=== PATIENT | female | born 1975 | race Two or more races ===

== ENCOUNTER 2024-07-11 14:18 | Emergency (ER) | payer MEDICAID, SELFPAY ==
[2024-07-11 14:52] VITALS: BP 153/92; PULSE 112; RESP 16; TEMP 37; O2SAT 97; BMI 22.3
--- NOTE | 2024-07-11 14:56 | XR_ITS ---
Examination: Duplex scan of the lower extremity, unilateral left complete Date and time of exam: July 11, 2024 1514 hours INDICATIONS: Left lower leg pain and swelling beginning one week ago Technique: Duplex scan of the extremity veins using B-mode/grayscale imaging and Doppler spectral analysis and color flow Attention is directed to internal echogenicity, compression and augmentation involving these veins, color flow assessment, spectral analysis Findings: Major deep venous structures in the extremity demonstrate normal course and caliber. There is no evidence of deep vein thrombosis. Normal color flow and spectral analysis Impression: Negative for DVT..
--- NOTE | 2024-07-11 15:05 | EDNOTE_ITS ---
<Statement entered by Regina Jain MD - 07/12/24 11:53> As co-signing physician, I was present and available for consult prn. I concur with the plan and care as documented by the midlevel provider. Lower Extremity Injury RME/HPI General Chief Complaint: Ankle/Foot Injury Stated Complaint: LEFT ANKLE PAIN/SWELLING X 1 WK Time Seen by Provider: 07/11/24 14:51 Arrival date/time: 07/11/24 14:18 RME / HPI RME / HPI Narrative: 49-year-old female presents with left ankle swelling for 1 week. Denies any fall or trauma. Patient states she went to her doctor yesterday and her doctor told her that it might be edema possibly from CHF. She feels that this is unlikely as it only in a single extremity. Patient states she is concerned for DVT. No fevers. No recent travel. No chest pain or shortness of breath. Related Data Home Medications ?Medication ?Instructions ?Recorded ?Confirmed Atenolol * (TENORMIN *) 50 mg PO QAM #0 tabs 4 04/03/18 LEVOTHYROXINE 88 mcg PO QAMAC ##0 08/06/13 04/03/18 hydrochlorothiazide 25 mg tablet 25 mg PO QAM #0 tabs 05/08/15 04/03/18 Previous Rx's ?Medication ?Instructions ?Recorded valacyclovir 1 gram tablet 1,000 mg PO TID #30 tabs hydrocodone 5 mg-acetaminophen 325 1 - 2 tab PO Q6H MS N pain #14 tabs 07/07/21 mg tablet dextromethorphan HBr 15 mg/5 mL 15 mg (5 mL) PO Q8H #1 18 mL 03/19/22 oral liquid (Tussin Cough (DM only)) meloxicam 7.5 mg tablet 7.5 mg PO QDAY #10 tabs 03/01 Allergies Allergy/AdvReac Type Severity Reaction Status Date / Time No Known Allergies Allergy Verified 07/11/24 14:19 Review of Systems Review of Systems Narrative Review of Systems: Review of systems negative except as outlined in the HPI. Past Medical History Past Medical History CARDIAC: Positive Cardiac Disorders and Hypertension; Negative Congestive Heart Failure RESPIRATORY: Negative Chronic Obstructive Pulmonary Disease (COPD) GENITOURINARY: Negative Renal Disease ENDOCRINE: Negative Diabetes Mellitus Type 1 or Diabetes Mellitus Type 2 Social History SMOKING STATUS: Never smoker SUBSTANCE USE: does not use ED Exam Narrative Physical exam: Constitutional: no acute distress, age appropriate, non-toxic Eyes: PERRL, conjunctivae w/o pallor, EOMI HENT: normocephalic, atraumatic. Oral mucosa moist Respiratory Effort: no stridor, effort normal, no retractions Musculoskeletal: Mild soft tissue swelling of the left ankle, no erythema. Range of motion of the ankle joint intact. DP pulse 2+. Some mild calf tenderness as well. Skin: warm, dry; No rash Neurology: alert, oriented X 4. Normal gait. Moves all extremities spontaneously. Psychology: cooperative, normal mood Course Quality Measures none Orders Category Date Time Status US venous doppler LE LT Stat Exams 07/11/24 14:56 Completed Vital Signs Vital signs: Vital Signs Temperature 98.6 F 07/11/24 14:52 Pulse Rate 112 H 07/11/24 14:52 Respiratory Rate 16 07/11/24 14:52 Blood Pressure 153/92 H 07/11/24 14:52 Pulse Oximetry (%) 97 07/11/24 14:52 Oxygen Delivery Method Room Air 07/11/24 14:52 Extremity Injury, Lower MDM Narrative MDM Narrative:: Patient presented with left leg pain and swelling. Differential diagnoses include fracture, arthritis, gout, DVT. Suspicion for fracture as there is no trauma and patient is able to ambulate without difficulty. History not consistent with gout. Ultrasound negative for DVT. Counseled to follow-up with primary care for further evaluation of ankle swelling. Return to ED precautions given Patient data External records reviewed:: [facility] previous records Clinical information provided by:: patient Social determinants that could affect healthcare access:: none Patient has the following chronic illnesses:: None How is presenting disease/condition affected by chronic disease/condition?: no chronic disease Evaluation data The following diagnostics were reviewed and interpreted by me:: radiology exam(s) Lab and/or radiology exams considered but not ordered:: Considered x-ray and laboratory testing but not indicated Interpretation Summary: Examination: Duplex scan of the lower extremity, unilateral left complete Date and time of exam: July 11, 2024 1514 hours INDICATIONS: Left lower leg pain and swelling beginning one week ago Technique: Duplex scan of the extremity veins using B-mode/grayscale imaging and Doppler spectral analysis and color flow Attention is directed to internal echogenicity, compression and augmentation involving these veins, color flow assessment, spectral analysis Findings: Major deep venous structures in the extremity demonstrate normal course and caliber. There is no evidence of deep vein thrombosis. Normal color flow and spectral analysis Impression: Negative for DVT.. Medications / Prescriptions Medications or Prescriptions considered but not ordered:: N/A Medication administrations:: N/A Consultations Consultation(s) initiated? (list below): No Diagnosis Extremity Injury, Lower Differential Diagnosis: ankle sprain and strain, ankle fracture and other (DVT) Most likely diagnosis given after review of the tests above:: Ankle swelling Admission Indicated Admission indicated?: not indicated Admission Request Was there a request for admission?: No Disposition Plan Disposition Plan: Discharge Discharge Attestation Discharge Attestation: The patient and all family members were given an opportunity to ask questions and understood the discharge instructions. Discharge instructions specifically effects, indications for sooner follow up or return to the emergency department, and the expected course of current diagnosis. Patient condition: Stable Discharge Plan Plan Patient Disposition: HOME (Self Care) Prescriptions/Referrals Prescriptions/Med Rec: No Action Atenolol * (TENORMIN *) tablet 50 mg PO QAM Qty: 0 LEVOTHYROXINE 88 mcg PO QAMAC Qty: 0 hydrochlorothiazide 25 MG tablet 25 mg PO QAM Qty: 0 valacyclovir 1 gram tablet 1,000 mg PO TID Qty: 30 1RF hydrocodone-acetaminophen 5-325 mg tablet 1 - 2 tab PO Q6H MDD 6 PRN (Reason: pain) Qty: 14 0RF meloxicam 7.5 mg tablet 7.5 mg PO QDAY Qty: 10 0RF Tussin Cough (DM only) 15 mg/5 mL liquid 15 mg PO Q8H Qty: 118 0RF Referrals: Ann Marie Garrett [facility] [Primary Care Provider] - In 1 week Problem List Clinical Impression: Ankle swelling Patient/Caregiver Discharge Instructions Education Materials: ED Leg Swelling in a Single Leg Additional Instructions: Your ultrasound showed no evidence of DVT (blood clot). Elevate the extremity to help with swelling. Follow-up with your PCP for further evaluation. Return to the ED for new or worsening symptoms. Print Language: Swedish Stand Alone Forms: [facility]sha Award Info., Patient Portal Info Letter
== END 2024-07-11 17:59 | disposition home or self-care (01) ==
PROVIDERS: Emergency Provider Emergency Medicine; PCP Nurse Practitioner Family
DX: M25.472 Effusion, left ankle (principal)
CPT/HCPCS: 93971; 99284

== ENCOUNTER → 2024-08-01 | Outpatient (CLI) | payer MEDICAID, SELFPAY ==
--- NOTE | 2024-08-01 15:15 | XR_ITS ---
Examination: Screening digital mammography, bilateral Computer aided detection 3-D breast Tomosynthesis, bilateral Date and time of exam: August 01, 2024 1607 hours Compared to mammograms dating to April 19, 2020 Indication: Screening Technique: Nonmagnified MLO, CC views of the breasts to been obtained, reconstructed from 3-D Tomosynthesis images. R2 computer aided detection program utilized for evaluation of suspicious masses and/or abnormal calcifications. 3-D Tomosynthesis images obtained. Findings: The breasts are heterogeneously dense, which may obscure small masses 16mm round mass indistinct margins nipple level right breast, 2.8 cm from the nipple Impression: BI-RADS Category 0: Incomplete: Need additional imaging evaluation 16 mm round mass indistinct margins nipple level right breast CC view, recommend follow-up spot tomographic CC view, spot tomographic MLO view upper right breast, bilateral breast sonography to complete the workup.
== END | disposition home or self-care (01) ==
PROVIDERS: PCP Nurse Practitioner Family; Referring Provider Nurse Practitioner Family; Visit Provider Nurse Practitioner Family
DX: Z12.31 Encounter for screening mammogram for malignant neoplasm of breast (principal); R92.8 Other abnormal and inconclusive findings on diagnostic imaging of breast; N63.10 Unspecified lump in the right breast, unspecified quadrant
CPT/HCPCS: 77063; 77067

== ENCOUNTER → 2024-08-10 | Outpatient (CLI) | payer MEDICAID, SELFPAY ==
--- NOTE | 2024-08-10 14:30 | ECHO_ITS ---
Transthoracic Echo Report Ht (in): 63 Wt (lb): 130 Exam Location: Echo Lab Status: Preadmit General Production Worker: DANNY Sinclair^^^^ Indications: Procedure Performed: BP: 133 / 82 HR: 107 Technical Quality: Fair MEASUREMENTS (Male / Female) Normal Values 2D ECHO LV Diastolic Diameter PLAX 3.7 cm 4.2 - 5.9 / 3.9 - 5.3 cm LV Systolic Diameter PLAX 2.1 cm IVS Diastolic Thickness 1.0 cm 0.6 - 1.0 / 0.6 - 0.9 cm LVPW Diastolic Thickness 0.8 cm 0.6 - 1.0 / 0.6 - 0.9 cm LV Relative Wall Thickness 0.5 LVOT Diameter 1.3 cm Aortic Root Diameter 2.5 cm LA Systolic Diameter LX 2.9 cm 3.0 - 4.0 / 2.7 - 3.8 cm LV Ejection Fraction MOD 4C 62.9 % LV Cardiac Index MOD 4C 2593.8 cm?/min?m? LV Ejection Fraction 4C AL 64.6 % LV Cardiac Index 4C AL 2801.9 cm?/min?m? LA Volume Index 11.0 cm?/m? 16 - 28 cm?/m? Ascending Aorta Diameter 2.2 cm DOPPLER AV Peak Velocity 180.3 cm/s AV Peak Gradient 13.0 mmHg AV Mean Gradient 8.0 mmHg AV Velocity Time Integral 37.6 cm AI Peak Velocity 232.0 cm/s AI Peak Gradient 21.5 mmHg AI Pressure Half Time 667.0 ms LVOT Peak Velocity 111.0 cm/s LVOT Peak Gradient 4.9 mmHg LVOT Velocity Time Integral 28.6 cm LVOT Cardiac Index 2499.1 cm?/min?m? AV Area Cont Eq vti 1.0 cm? AV Area Cont Eq pk 0.8 cm? MV Area PHT 4.7 cm? MR Peak Velocity 251.0 cm/s MR Peak Gradient 25.2 mmHg Mitral E Point Velocity 77.7 cm/s Mitral A Point Velocity 93.5 cm/s Mitral E to A Ratio 0.8 LV E' Lateral Velocity 10.6 cm/s Mitral E to LV E' Lateral Ratio 7.3 LV E' Septal Velocity 9.0 cm/s Mitral E to LV E' Septal Ratio 8.6 TR Peak Velocity 232.5 cm/s TR Peak Gradient 21.6 mmHg PV Peak Velocity 106.0 cm/s PV Peak Gradient 4.5 mmHg RVOT Peak Velocity 70.9 cm/s FINDINGS Left Ventricle Normal left ventricular size, wall thickness, systolic function with no obvious regional wall motion abnormalities. There is grade I diastolic dysfunction of the left ventricle (impaired relaxation pattern). The left ventricular ejection fraction is normal, estimated at 60-65%. Right Ventricle The right ventricle is normal in size and systolic function. The estimated right ventricular systolic pressure, 23 mmHg. Left Atrium The left atrium is normal by two-dimensional, color flow and Doppler imaging with no structural abnormalities, no thrombus formation present. Right Atrium The right atrium is normal by two-dimensional imaging, color flow and Doppler imaging with no structural abnormalities, no thrombus formation present. Atrial Septum The interatrial septum appears normal with no evidence of a shunt. Aorta The aorta is normal by two-dimensional, color flow and Doppler interrogation. Mitral Valve Trace to mild mitral regurgitation. Aortic Valve Aortic valve sclerosis. Trace to mild aortic valve regurgitation. Tricuspid Valve There is mild tricuspid valve regurgitation. Pulmonic Valve Trivial pulmonic valve regurgitation. Vessels The pulmonary artery appears normal. The inferior vena cava pulmonary and hepatic veins appear normal. Pericardium The pericardium is normal by two-dimensional imaging. There is no significant pericardial effusion. CONCLUSIONS indication: palpitations The transthoracic study is normal by two-dimensional, color flow imaging and Doppler interrogation. normal left ventricular size and function. Approximate ejection fraction is 65% trace mitral and trace tricuspid regurgitation No wall motion abnormalities Chantel Cabrera (Electronically Signed) Final Date: 10 August 2024 17:07
== END | disposition home or self-care (01) ==
PROVIDERS: PCP Nurse Practitioner Family; Referring Provider Nurse Practitioner Family; Visit Provider Nurse Practitioner Family
DX: I08.1 Rheumatic disorders of both mitral and tricuspid valves (principal)
CPT/HCPCS: 93306

== ENCOUNTER → 2025-05-21 | Outpatient (CLI) | payer MEDICAID, SELFPAY ==
--- NOTE | 2025-05-21 09:41 | XR_ITS ---
Examination: Breast ultrasound complete, bilateral Date and time of exam: May 21, 2025, 0949 hours INDICATIONS: Mammogram August 02, 1999 2516 mm round mass indistinct margins nipple level right breast 2.8 cm from the nipple Technique: Real-time grayscale ultrasonographic imaging bilateral breasts, including all 4 quadrants as well as nipple retroareolar and axillary regions. Findings: Sonographic images right breast 9:00 cyst 18 x 13 mm No solid nodules Sonographic images left breast 2:00 cyst 12 x 11 mm No solid nodules Bilateral smaller cysts IMPRESSION: BI-RADS Category 2: Benign findings
--- NOTE | 2025-05-21 10:05 | XR_ITS ---
Examination: Diagnostic digital mammography, unilateral, right Computer aided detection 3-D breast Tomosynthesis, unilateral Date and time of exam: May 21, 2025, 1007 hours INDICATIONS: Mammogram August 01, 2024 16 mm round mass indistinct margins nipple level right breast on the CC view Technique: Nonmagnified MLO, CC views of the right breast have been obtained, reconstructed from 3-D Tomosynthesis images. R2 computer aided detection program utilized for evaluation of suspicious masses and/or abnormal calcifications. 3-D Tomosynthesis images obtained. Findings: The breast is heterogeneously dense, which may obscure small masses No suspicious masses depicted on the spot compression views Impression: BI-RADS category 2: Benign findings Recommend yearly follow-up mammography
== END | disposition home or self-care (01) ==
LOC: CDIM 09:31
PROVIDERS: PCP Physician Assistant Medical; Referring Provider Physician Assistant Medical; Visit Provider Physician Assistant Medical
DX: R92.321 Mammographic fibroglandular density, right breast (principal); R92.8 Other abnormal and inconclusive findings on diagnostic imaging of breast
CPT/HCPCS: 76641; 77061; 77065; G0279